=== PATIENT | female | born 1990 | race Caucasian/White ===

== ENCOUNTER 2016-10-29 21:51 | Emergency (ER) | payer OTHER ==
[2016-10-29 22:28] LABS: HEMOGLOBIN 12.6 gm/dl (12.3-15.3); RED BLOOD COUNT 4.23 M/UL (4.00-5.10); WHITE BLOOD COUNT 7.1 K/UL (4.5-11.0)
[2016-10-29 22:42] LABS: BUN/CREATININE RATIO 18 (0-10)
== END 2016-10-30 01:55 | disposition home or self-care (01) ==
LOC: ER1 21:51
PROVIDERS: Family Medicine
DX: S62.613A Displaced fracture of proximal phalanx of left middle finger, initial encounter for closed fracture (principal); S89.92XA Unspecified injury of left lower leg, initial encounter; S90.812A Abrasion, left foot, initial encounter; F17.210 Nicotine dependence, cigarettes, uncomplicated; V09.9XXA Pedestrian injured in unspecified transport accident, initial encounter
CPT/HCPCS: 36415; 73564; 73590; 73610; 73630; 80053; 85025; 90471; 90715; 99283